=== PATIENT | male | born 1990 | race Caucasian/White ===

== ENCOUNTER 2017-12-11 19:40 | Emergency (ER) | payer BC ==
[~2017-12-11] VITALS: Ht 180.3 cm; Wt 90.6 kg
[2017-12-11 20:04] LABS: HEMATOCRIT 46.4 % (38.0-50.0); HEMOGLOBIN 15.9 G/DL (12.5-16.6); MCH 30.8 PG (29.0-34.0); MCHC 34.3 G/DL (30.0-36.0); MCV 89.9 FL (86-99); PLATELET COUNT 263 K/uL (156-360); RBC DIS.WIDTH-CV 11.9 % (11.8-14.6); RBC DIS.WIDTH-SD 38.7 % (39-53); RED BLOOD COUNT 5.16 M/uL (4.00-5.50); WHITE BLOOD COUNT 9.1 K/uL (4.1-10.2)
[2017-12-11 20:14] LABS: CHLORIDE 104 mEq/L (99-109); POTASSIUM 4.4 mEq/L (3.7-5.4); SODIUM 140 mEq/L (136-147)
[2017-12-11 20:17] LABS: GLUCOSE 105 mg/dL (70-99); TOTAL PROTEIN 7.6 g/dL (6.4-8.3)
[2017-12-11 20:18] LABS: TOTAL BILIRUBIN 1.4 mg/dL (0.0-1.0)
[2017-12-11 20:20] LABS: ALKALINE PHOSPHATASE 62 IU/L (3-129); CREATININE 1.1 mg/dL (0.6-1.3)
[2017-12-11 20:21] LABS: UREA NITROGEN (BUN) 13 mg/dL (9-23)
[2017-12-11 20:22] LABS: AST (GOT) 18 IU/L (2-34)
[2017-12-11 20:23] LABS: ALT (GPT) 25 IU/L (3-49); GFR ESTIMATE (CALCULATED) > 59 mL/min/ (58.99-99999)
[2017-12-11 20:24] LABS: LIPASE 40 U/L (1.0-51.0)
[2017-12-11 20:31] LABS: TROP-I INTERPRETATION NEGATIVE; TROPONIN-I < 0.01 ng/mL (0.0-0.30)
[2017-12-11] MEDS ORDERED: CARAFATE1 GM PO (22:10)
[2017-12-11] MEDS ORDERED: ZANTAC150 MG PO (22:10)
[2017-12-11 22:14] LABS: DIRECT BILIRUBIN 0.4 mg/dL (0.0-0.3)
[2017-12-11 22:21] VITALS: BP 155/94
== END 2017-12-11 22:22 | disposition home or self-care (01) ==
LOC: EME 19:40
DX: R07.9 Chest pain, unspecified (principal); K21.0 Gastro-esophageal reflux disease with esophagitis; R19.7 Diarrhea, unspecified
CPT/HCPCS: 71046; 80053; 82248; 83690; 84484; 85027; 99281; 99284